=== PATIENT | female | born 1965 | race Hispanic/Latino ===

== ENCOUNTER 2024-02-02 03:56 | Inpatient (IN) | payer MEDICAID, SELFPAY ==
[2024-02-02 05:06] LABS: Hematocrit 25.9 % (36.0-47.0); Hemoglobin 8.1 g/dL (12.0-16.0); Mean Corpuscular HGB CONC 31.3 g/dL (32.0-36.0); Mean Corpuscular Hemoglobin 25.8 pg (27.0-31.0); Mean Corpuscular Volume 82.5 fL (78.0-98.0); Mean Platelet Volume 9.9 fL (7.4-10.4); Platelet Count 352 10x3/uL (130-400); RBC Distribution Width 16.6 % (11.5-14.5); Red Blood Cell (RBC) Count 3.14 mill/uL (4.20-5.40)
[2024-02-02 05:07] LABS: ALT (SGPT) 26 U/L (8-55); AST (SGOT) 56 U/L (5-34); Alkaline Phosphatase 686 U/L (40-110); Anion Gap 18 mmol/L (10-20); BUN (Urea Nitrogen) 19 mg/dL (9.8-20.1); Bilirubin, Total 1.2 mg/dL (0.2-1.2); Calc. Creatinine Clearance 0 mL/min (70-130); Calcium 7.6 mg/dL (7.8-10.44); Carbon Dioxide 23 mmol/L (22-29); Chloride 93 mmol/L (98-107); Estimated GFR 96; Glucose 100 mg/dL (70-105); Lipase 24 U/L (8-78); Potassium 3.2 mmol/L (3.5-5.1); Sodium 131 mmol/L (136-145)
[2024-02-02 05:11] LABS: Bilirubin Negative (Negative); Blood, Urine 3+ (Negative); CAUTI Indications for Culture Alt mental st,lethar; Clarity Clear (Clear); Glucose, Urine (Dipstick) Normal (Negative); Ketone, Urine Negative (Negative); Leukocyte 25 Leu/uL (Negative); Nitrite Negative (Negative); Protein, Urine (Dipstick) Negative (Neg-Trace); RBC/HPF Greater than 50 HPF (0-3); Squamous Epithelial 0-3 HPF (0-3); WBC/HPF None Seen HPF (0-3); pH, Urine 7.5 (5.0-9.0)
[2024-02-02 05:16] LABS: Bacteria/HPF 1+ HPF (None Seen); Urine Culture Reflex No No
[2024-02-02 05:31] LABS: Bacteria/HPF 1+ HPF (None Seen); Bilirubin Negative (Negative); Blood, Urine 3+ (Negative); CAUTI Indications for Culture Alt mental st,lethar; Clarity Turbid (Clear); Glucose, Urine (Dipstick) 30 mg/dL (Negative); Ketone, Urine Negative (Negative); Leukocyte 500 Leu/uL (Negative); Nitrite Negative (Negative); Protein, Urine (Dipstick) 100 mg/dL (Neg-Trace); RBC/HPF Greater than 50 HPF (0-3); Renal Epithelial 0-3 HPF (None Seen); Specific Gravity, Urine 1.009 (1.002-1.036); Squamous Epithelial 0-3 HPF (0-3); Urobilinogen 6 mg/dL (Less than 2); WBC/HPF Greater than 50 HPF (0-3); pH, Urine 6.5 (5.0-9.0)
[2024-02-02 05:32] LABS: Urine Culture Reflex Yes Yes
[2024-02-02] MEDS ORDERED: Morphine 4 MG/ML VIAL ONE ×2 (06:14→06:48)
[2024-02-02] MEDS ORDERED: Ondansetron PF 4 MG/2 ML Vial ONE (06:15)
[2024-02-02 06:21] LABS: Band 17 % (5-11); Burr Cells SLIGHT = 2-5 cells HPF (0-1); Elliptocytes SLIGHT = 2-5 cells HPF (0-1); Hypochromia SLIGHT = 6-15 cells HPF (0-5); Lymphocytes 3 % (21-51); Microcytosis SLIGHT = 6-15 cells HPF (0-5); Neutrophil 81 % (42-75); Platelet Adequacy Comment Platelets Normal; Polychromasia SLIGHT = 2-3 cells HPF (0-2); Target Cells SLIGHT = 2-5 cells HPF (0-1); Vacuoles SLIGHT
[2024-02-02] MEDS ORDERED: Vancomycin (BATCH) 2 GM/500 ML BAG ONE (06:26)
[2024-02-02] MEDS ORDERED: PROPOFOL 200 MG/20 ML VIAL ONE (08:02)
[2024-02-02] MEDS ORDERED: Lidocaine 1% PF 5 ML VIAL ONE (08:02)
[2024-02-02] MEDS ORDERED: PHENYLEPHRINE-NS 100 MCG/ML 10 ML SYRINGE ONE (08:02)
[2024-02-02] MEDS ORDERED: Rocuronium Bromide 10 MG/ML (10ML VIAL) ONE (08:02)
[2024-02-02] MEDS ORDERED: Dexamethasone 20 MG/5 ML VIAL ONE (08:02)
[2024-02-02] MEDS ORDERED: Calcium Chloride 1 GM/10 ML Abboject SYRINGE ONE (08:02)
[2024-02-02] MEDS ORDERED: Potassium Chloride 20 MEQ (100 mL) BAG ONE ×2 (08:38→08:40)
[2024-02-02] MEDS ORDERED: Albumin 5% 500 ML ONE (08:39)
[2024-02-02] MEDS ORDERED: Iopamidol 370 76% 100 ML VIAL ONE (10:46)
[2024-02-02 11:25] LABS: Actual Bicarbonate (HCO3a) 19.3 mEq/L (22-28); Base Excess (BEa) -5.4 mEq/L (-2.0 to +3.0); CO2 Tension 34.6 mmHg (35.0-45.0); Calcium, Ionized (arterial) 1.01 mmol/L (1.12-1.30); Carboxyhemoglobin (COHb) 0.8 gm% (0.0-3.0); Hematocrit-ABG 29 % (36.0-47.0); Hemoglobin (Hb) 9.9 g/dL (12.0-16.0); Potassium - ABG Lab 3.51 mmol/L (3.70-5.30); pH, Arterial 7.365 (7.35-7.45)
[2024-02-02 11:26] LABS: Puncture Site Arterial Line
[2024-02-02] MEDS ORDERED: Insulin Lispro 100 UNIT/ML 10 ML VIAL SC PRN (11:33)
[2024-02-02] MEDS ORDERED: Morphine 4 MG/ML VIAL SLOW IVP PRN (11:33)
[2024-02-02] MEDS ORDERED: Ondansetron PF 4 MG/2 ML Vial IVP PRN (11:33)
[2024-02-02] MEDS ORDERED: Glucagon 1 MG/ML KIT IM PRN (11:33)
[2024-02-02] MEDS ORDERED: Dextrose 5% in Water 1,000 ML IV PRN (11:33)
[2024-02-02] MEDS ORDERED: Dextrose 50% Abboject 50 ML SYRINGE SLOW IVP PRN (11:33)
[2024-02-02] MEDS ORDERED: Morphine 2 MG/ML VIAL SLOW IVP PRN ×2 (11:33→12:00)
[2024-02-02] MEDS ORDERED: Ipratropium/Albuterol 3 ML NEB NEB PRN (11:33)
[2024-02-02] MEDS: Piperacillin/Tazobactam 3.375 GM in Sodium Chloride 0.9% 100 ML IVPB SCH ×2 (11:36→16:40)
[2024-02-02] MEDS: NS 0.9% w/ 20 MEQ KCL 1,000 ML IV SCH (11:36)
[2024-02-02] MEDS: Pantoprazole 40 MG VIAL IVP SCH ×2 (11:36)
[2024-02-02] MEDS ORDERED: Ventilator Sedation Protocol 1 EACH FS SCH (11:45)
[2024-02-02 11:57] VITALS: BMI 32.1
[2024-02-02] MEDS ORDERED: Fentanyl BOLUS 250 ML IVPB PRN (12:00)
[2024-02-02] MEDS ORDERED: DISCONTINUE PREVIOUS NARCOTIC PAIN MEDICATIONS AND BENZODIAZEPINES FS SCH (12:00)
[2024-02-02] MEDS ORDERED: Propofol BOLUS 1,000 MG/100 ML VIAL IV PRN (12:00)
[2024-02-02] MEDS ORDERED: Lorazepam 2 MG/ML VIAL SLOW IVP PRN (12:00)
[2024-02-02] MEDS ORDERED: Propofol 1,000 MG/100 ML VIAL IV PRN (12:00)
[2024-02-02] MEDS: Albumin 25% 25 GM (100 mL) BOT IVPB SCH (12:39)
[2024-02-02] MEDS ORDERED: Piperacillin/Tazobactam 4.5 GM in Sodium Chloride 0.9% 100 ML IVPB SCH (14:00)
[2024-02-02] MEDS ORDERED: NOREPINEPHRINE 8 MG/250 ML-D5W 250 ML IVPB SCH (14:30)
[2024-02-02 14:44] VITALS: BP 109/59
[2024-02-02] MEDS: Fentanyl CADD 100 ML IV SCH (15:05)
[2024-02-02 16:56] LABS: Hematocrit 29.2 % (36.0-47.0); Hemoglobin 9.5 g/dL (12.0-16.0); Hemoglobin A1c 6.4 % (4.0-6.0); Mean Corpuscular HGB CONC 32.5 g/dL (32.0-36.0); Mean Corpuscular Hemoglobin 26.4 pg (27.0-31.0); Mean Corpuscular Volume 81.1 fL (78.0-98.0); Mean Platelet Volume 9.8 fL (7.4-10.4); Platelet Count 230 10x3/uL (130-400); RBC Distribution Width 16.1 % (11.5-14.5)
[2024-02-02 16:57] LABS: Anion Gap 12 mmol/L (10-20); BUN (Urea Nitrogen) 19 mg/dL (9.8-20.1); Calc. Creatinine Clearance 153 mL/min (70-130); Calcium 7.2 mg/dL (7.8-10.44); Carbon Dioxide 21 mmol/L (22-29); Chloride 102 mmol/L (98-107); Estimated GFR 108; Glucose 99 mg/dL (70-105); Potassium 3.4 mmol/L (3.5-5.1); Sodium 132 mmol/L (136-145)
[2024-02-02 17:38] LABS: Anisocytosis SLIGHT = 6-15 cells HPF (0-5); Band 38 % (5-11); Burr Cells MODERATE= 6-15 cells HPF (0-1); Lymphocytes 2 % (21-51); Metamyelocyte 10 % (0-0); Neutrophil 50 % (42-75); Ovalocytes SLIGHT = 2-5 cells HPF (0-1); Platelet Adequacy Comment Platelets Normal; Polychromasia MODERATE = 3-4 cells HPF (0-2); Reactive Lymphocytes 1 % (0-10); Reflex for Review?? YES
[2024-02-02] MEDS: Enoxaparin 40 MG (0.4 mL) SYRINGE SC SCH (20:59)
[2024-02-03 04:05] LABS: Hematocrit 26.3 % (36.0-47.0); Hemoglobin 8.5 g/dL (12.0-16.0); Mean Corpuscular HGB CONC 32.3 g/dL (32.0-36.0); Mean Corpuscular Hemoglobin 25.8 pg (27.0-31.0); Mean Corpuscular Volume 79.7 fL (78.0-98.0); Mean Platelet Volume 9.9 fL (7.4-10.4); Platelet Count 170 10x3/uL (130-400); RBC Distribution Width 16.1 % (11.5-14.5)
[2024-02-03 04:31] LABS: ALT (SGPT) 17 U/L (8-55); AST (SGOT) 41 U/L (5-34); Albumin 2.2 g/dL (3.5-5.0); Alkaline Phosphatase 181 U/L (40-110); Anion Gap 15 mmol/L (10-20); BUN (Urea Nitrogen) 19 mg/dL (9.8-20.1); Bilirubin, Total 2.6 mg/dL (0.2-1.2); Calc. Creatinine Clearance 140 mL/min (70-130); Calcium 6.8 mg/dL (7.8-10.44); Carbon Dioxide 19 mmol/L (22-29); Chloride 104 mmol/L (98-107); Estimated GFR 105; Globulin 2.8 g/dL (2.4-3.5); Glucose 96 mg/dL (70-105); Potassium 3.7 mmol/L (3.5-5.1); Sodium 134 mmol/L (136-145)
[2024-02-03 04:37] LABS: Band 29 % (5-11); Burr Cells SLIGHT = 2-5 cells HPF (0-1); Dohle Bodies SLIGHT; Hypochromia SLIGHT = 6-15 cells HPF (0-5); Lymphocytes 6 % (21-51); Macrocytosis SLIGHT = 6-15 cells HPF (0-5); Metamyelocyte 10 % (0-0); Monocytes 8 % (0-10); Myelocyte 1 % (0-0); Neutrophil 45 % (42-75); Platelet Adequacy Comment Platelets Normal; Polychromasia SLIGHT = 2-3 cells HPF (0-2); Target Cells SLIGHT = 2-5 cells HPF (0-1); Toxic Granulation SLIGHT; Vacuoles MODERATE
[2024-02-03 07:22] LABS: Actual Bicarbonate (HCO3a) 20.5 mEq/L (22-28); Base Excess (BEa) -3.8 mEq/L (-2.0 to +3.0); CO2 Tension 35.4 mmHg (35.0-45.0); Calcium, Ionized (arterial) 0.95 mmol/L (1.12-1.30); O2 Tension (PaO2), arterial 131.3 mmHg (80.0-100.0); Potassium - ABG Lab 4.12 mmol/L (3.70-5.30); pH, Arterial 7.381 (7.35-7.45)
[2024-02-03 07:24] LABS: Puncture Site Arterial Line
[2024-02-03] MEDS ORDERED: fentaNYL 50 mcg/hour Patch TD SCH (08:00)
[2024-02-03 09:57] VITALS: TEMP 98.6
[2024-02-03 12:00] VITALS: BMI 33.5
[2024-02-08 12:31] LABS: Actual Bicarbonate (HCO3a) 18.9 mEq/L (22-28); Analyzer IN Cardio OR; CO2 Tension 35.1 mmHg (35.0-45.0); Calcium, Ionized (arterial) 1.02 mmol/L (1.12-1.30); Carboxyhemoglobin (COHb) 1.5 gm% (0.0-3.0); Hematocrit-ABG 27 % (36.0-47.0); Hemoglobin (Hb) 9.2 g/dL (12.0-16.0); O2 Tension (PaO2), arterial 106.2 mmHg (80.0-100.0); Potassium - ABG Lab 4.01 mmol/L (3.70-5.30)
[2024-02-08 12:31] LABS: Actual Bicarbonate (HCO3a) 21.7 mEq/L (22-28); Analyzer IN Cardio OR; Base Excess (BEa) -3.4 mEq/L (-2.0 to +3.0); CO2 Tension 38.8 mmHg (35.0-45.0); Calcium, Ionized (arterial) 0.95 mmol/L (1.12-1.30); Carboxyhemoglobin (COHb) 0.8 gm% (0.0-3.0); Hematocrit-ABG 28 % (36.0-47.0); Hemoglobin (Hb) 9.4 g/dL (12.0-16.0); O2 Tension (PaO2), arterial 334.2 mmHg (80.0-100.0); Puncture Site Arterial Line; pH, Arterial 7.365 (7.35-7.45)
[2024-02-08 12:32] LABS: Puncture Site Arterial Line
== END 2024-02-03 09:22 | disposition expired | DRG 853 ==
LOC: ERS 03:56 → SDC 07:45 → CCU 10:56
PROVIDERS: ADMIT Specialist; ATTEND Specialist
PROC: 0DJU0ZZ Inspection of Omentum, Open Approach (ICD-10-PCS; principal; 2024-02-02)
PROC: 0W9G00Z Drainage of Peritoneal Cavity with Drainage Device, Open Approach (ICD-10-PCS; 2024-02-02)
PROC: 30233N1 Transfusion of Nonautologous Red Blood Cells into Peripheral Vein, Percutaneous Approach (ICD-10-PCS; 2024-02-02)
PROC: 4A133R1 Monitoring of Arterial Saturation, Peripheral, Percutaneous Approach (ICD-10-PCS; 2024-02-02)
PROC: 3E03329 Introduction of Other Anti-infective into Peripheral Vein, Percutaneous Approach (ICD-10-PCS; 2024-02-02)
PROC: 30233J1 Transfusion of Nonautologous Serum Albumin into Peripheral Vein, Percutaneous Approach (ICD-10-PCS; 2024-02-02)
PROC: 3E033XZ Introduction of Vasopressor into Peripheral Vein, Percutaneous Approach (ICD-10-PCS; 2024-02-02)
PROC: 5A1945Z Respiratory Ventilation, 24-96 Consecutive Hours (ICD-10-PCS; 2024-02-02)
DX: A41.9 Sepsis, unspecified organism (principal); J96.00 Acute respiratory failure, unspecified whether with hypoxia or hypercapnia; K65.9 Peritonitis, unspecified; R65.21 Severe sepsis with septic shock; S37.69XA Other injury of uterus, initial encounter; C79.9 Secondary malignant neoplasm of unspecified site; I95.9 Hypotension, unspecified; Z51.5 Encounter for palliative care; Z66 Do not resuscitate; C53.9 Malignant neoplasm of cervix uteri, unspecified; R00.0 Tachycardia, unspecified; K66.8 Other specified disorders of peritoneum; E11.9 Type 2 diabetes mellitus without complications; D64.9 Anemia, unspecified; N88.9 Noninflammatory disorder of cervix uteri, unspecified; K42.9 Umbilical hernia without obstruction or gangrene; Z98.891 History of uterine scar from previous surgery; Z98.890 Other specified postprocedural states; Z96.0 Presence of urogenital implants; Z90.710 Acquired absence of both cervix and uterus
CPT/HCPCS: 36415; 36416; 36430; 71045; 74177; 80053; 81001; 82805; 83036; 83605; 83690; 85025; 85060; 86850; 86900; 86901; 87040; 87070; 87076; 87077; 87086; 87102; 87186; 87205; 87206; 88307; 93005; 94002; 94003; 96365; 96367; 96374; 96375; 96376; 97139; A6258; C1713; C1751; J1100; J1650; J2272; J2405; J2470; J2543; J2704; J3010; J3370; J3480; P9016; P9045; P9047; Q9967